=== PATIENT | female | born 1945 | race Caucasian/White ===

== ENCOUNTER → 2018-11-20 | Outpatient (CLI) | payer MEDICARE ==
[2018-11-20 15:08] LABS: ALBUMIN 3.9 GM/DL (3.2-5.2); CALCIUM LEVEL 10.1 MG/DL (8.8-10.2); CREATININE FOR GFR 1.44 MG/DL (0.55-1.30); GLOMERULAR FILTRATION RATE 37.8 (>39); PHOSPHORUS LEVEL 3.6 MG/DL (2.5-4.9); POTASSIUM SERUM 4.9 MEQ/L (3.5-5.1); URIC ACID 6.3 MG/DL (2.6-6.0)
--- NOTE | 2018-11-20 18:56 | REP ---
Left foot series: Four views. History: Medial foot pain. No known injury. Findings: Four views left foot demonstrate mild osteoarthritic spurring at the first MTP joint. There is a tiny os naviculare. A small spur is seen projecting from the medial aspect of the tarsal navicular bone. There is also Achilles calcaneal spurring. There is tendon insertion site spurring on the proximal end of the fifth metatarsal. Overall mineralization pattern is normal. No fracture or erosive changes seen. Impression: Some degenerative spurring and first MTP joint osteoarthritic spurring. Heel spur. Electronically Signed by Keagan June MD 11/20/2018 07:31 P
== END ==
LOC: M WUC 13:19
PROVIDERS: ATTEND Physician Assistant
DX: M77.32 Calcaneal spur, left foot (principal)

== ENCOUNTER → 2019-11-15 | Outpatient (REF) | payer MEDICARE ==
[~2019-11-15] MED LIST: ASPI81TA86 PO; CLAR10CA3 PO; CLONI1TA PO; DIAZ5TAB PO; ELIQ5TAB PO; LEVO-88 PO; LOSA50TA88 PO; MECL12.589 PO; METO37.5 PO; METO75TA PO; PANT40TA29 PO; SIMV40TA20 PO; SYNT25TA PO; SYNT88TA2 PO
[2019-11-15 17:16] LABS: BASO # 0.1 10^3/uL (0.0-0.2); BASO % 0.7 % (0.0-1.0); EOS # 0.4 10^3/uL (0.0-0.5); EOS % 5.6 % (0.0-3.0); HEMATOCRIT 43.1 % (36.0-47.0); HEMOGLOBIN 14.1 g/dl (12.0-15.5); LYMPH # 2.1 10^3/uL (1.5-5.0); MEAN CORPUSCULAR HEMOGLOBIN 28.4 pg (27.0-33.0); MEAN CORPUSCULAR HGB CONC 32.7 g/dl (32.0-36.5); MEAN CORPUSCULAR VOLUME 86.9 fl (80.0-96.0); MONO # 0.7 10^3/uL (0.0-0.8); MONO % 9.3 % (0.0-5.0); NEUTROPHILS # 4.4 10^3/uL (1.5-8.5); NEUTROPHILS % 57.1 % (36.0-66.0); PLATELET COUNT, AUTOMATED 266 10^3/uL (150-450); RED BLOOD COUNT 4.96 10^6/uL (4.00-5.40); WHITE BLOOD COUNT 7.6 10^3/uL (4.0-10.0)
[2019-11-15 17:40] LABS: BILIRUBIN,TOTAL 0.6 MG/DL (0.2-1.0); CALCIUM LEVEL 9.6 MG/DL (8.8-10.2); CREATININE FOR GFR 1.84 MG/DL (0.55-1.30); GLOMERULAR FILTRATION RATE 28.4 (>39); POTASSIUM SERUM 5.2 MEQ/L (3.5-5.1); TOTAL PROTEIN 7.5 GM/DL (6.4-8.2)
== END ==
LOC: M LABDRWAD 17:04
PROVIDERS: ATTEND Physician Assistant
DX: R60.0 Localized edema (principal)

== ENCOUNTER 2020-01-17 01:28 | Emergency (ER) | payer MEDICARE ==
[~2020-01-17] VITALS: Ht 162.6 cm; Wt 89.3 kg
[2020-01-17] MEDS ORDERED: CLONI1TA PO (01:51)
[2020-01-17] MEDS ORDERED: SIMV40TA20 PO (01:51)
[2020-01-17] MEDS ORDERED: ELIQ5TAB PO (01:51)
[2020-01-17] MEDS ORDERED: LOSA50TA88 PO (01:51)
[2020-01-17] MEDS ORDERED: MECL12.589 PO (01:51)
[2020-01-17] MEDS ORDERED: METO37.5 PO (01:51)
[2020-01-17] MEDS ORDERED: DIAZ5TAB PO (01:51)
[2020-01-17] MEDS ORDERED: ASPI81TA86 PO (01:51)
[2020-01-17] MEDS ORDERED: SYNT25TA PO (01:51)
[2020-01-17] MEDS ORDERED: PANT40TA29 PO (01:51)
[2020-01-17] MEDS ORDERED: CLAR10CA3 PO (01:51)
[2020-01-17 02:12] LABS: HEMATOCRIT 45.1 % (36.0-47.0); HEMOGLOBIN 14.5 g/dl (12.0-15.5); MEAN CORPUSCULAR HEMOGLOBIN 27.6 pg (27.0-33.0); MEAN CORPUSCULAR HGB CONC 32.2 g/dl (32.0-36.5); MEAN CORPUSCULAR VOLUME 85.9 fl (80.0-96.0); PLATELET COUNT, AUTOMATED 231 10^3/uL (150-450); RED BLOOD COUNT 5.25 10^6/uL (4.00-5.40); WHITE BLOOD COUNT 7.8 10^3/uL (4.0-10.0)
[2020-01-17 02:44] LABS: CALCIUM LEVEL 9.6 MG/DL (8.8-10.2); CREATININE FOR GFR 1.52 MG/DL (0.55-1.30); GLOMERULAR FILTRATION RATE 35.4 (>39); THYROID STIMULATING HORMONE 8.45 uIU/ML (0.358-3.740)
[2020-01-17 03:38] LABS: FREE T4 1.08 NG/DL (0.76-1.46)
[2020-01-17 04:15] VITALS: BP 136/73
[2020-01-17] MEDS ORDERED: METO75TA PO (04:19)
[2020-01-17] MEDS ORDERED: LEVO-88 PO (04:28)
[2020-01-17] MEDS ORDERED: SYNT88TA2 PO (04:28)
== END 2020-01-17 04:30 | disposition home or self-care (01) ==
LOC: M ED 01:28
DX: I12.9 Hypertensive chronic kidney disease with stage 1 through stage 4 chronic kidney disease, or unspecified chronic kidney disease (principal); N18.3 Chronic kidney disease, stage 3 (moderate); I48.91 Unspecified atrial fibrillation; E78.5 Hyperlipidemia, unspecified; Z86.73 Personal history of transient ischemic attack (TIA), and cerebral infarction without residual deficits; H81.09 Meniere's disease, unspecified ear; Z79.899 Other long term (current) drug therapy; Z79.01 Long term (current) use of anticoagulants; Z79.82 Long term (current) use of aspirin; Z88.8 Allergy status to other drugs, medicaments and biological substances; Z88.5 Allergy status to narcotic agent; Z91.048 Other nonmedicinal substance allergy status

== ENCOUNTER → 2021-12-13 | Outpatient (CLI) | payer MEDICARE ==
[~2021-12-13] MED LIST changes: +LOSA50TA28 PO; -LOSA50TA88 PO; +MECL-136 PO; -MECL12.589 PO
[2021-12-13 13:38] LABS: BASO % 0.4 % (0.0-1.0); EOS # 0.3 10^3/uL (0.0-0.5); HEMATOCRIT 37.9 % (36.0-47.0); HEMOGLOBIN 12.7 g/dl (12.0-15.5); LYMPH # 1.7 10^3/uL (1.5-5.0); MEAN CORPUSCULAR HEMOGLOBIN 29.3 pg (27.0-33.0); MEAN CORPUSCULAR HGB CONC 33.5 g/dl (32.0-36.5); MEAN CORPUSCULAR VOLUME 87.5 fl (80.0-96.0); MONO # 0.7 10^3/uL (0.0-0.8); MONO % 8.6 % (2.0-8.0); NEUTROPHILS % 64.5 % (36.0-66.0); PLATELET COUNT, AUTOMATED 239 10^3/uL (150-450); RED BLOOD COUNT 4.33 10^6/uL (4.00-5.40); WHITE BLOOD COUNT 7.8 10^3/uL (4.0-10.0)
[2021-12-13 14:01] LABS: ALBUMIN 3.3 GM/DL (3.2-5.2); BILIRUBIN,TOTAL 0.6 MG/DL (0.2-1.0); CALCIUM LEVEL 9.6 MG/DL (8.8-10.2); CHOLESTEROL RISK RATIO 2.206 (<5); CREATININE FOR GFR 2.15 MG/DL (0.55-1.30); GLOMERULAR FILTRATION RATE 23.6 (>39); POTASSIUM SERUM 3.4 MEQ/L (3.5-5.1); THYROID STIMULATING HORMONE 1.69 uIU/ML (0.358-3.740); TOTAL PROTEIN 6.8 GM/DL (6.4-8.2)
== END ==
LOC: M ADAMS 10:37
DX: I48.91 Unspecified atrial fibrillation (principal); Z13.1 Encounter for screening for diabetes mellitus; I82.819 Embolism and thrombosis of superficial veins of unspecified lower extremity; R60.9 Edema, unspecified; R53.83 Other fatigue; I10 Essential (primary) hypertension; E78.5 Hyperlipidemia, unspecified; R00.2 Palpitations; Z00.00 Encounter for general adult medical examination without abnormal findings; I73.9 Peripheral vascular disease, unspecified; R06.02 Shortness of breath; R94.31 Abnormal electrocardiogram [ECG] [EKG]; Z79.899 Other long term (current) drug therapy